=== PATIENT | male | born 1990 | race Caucasian/White ===

== ENCOUNTER 2021-10-16 07:41 | Emergency (ER) | payer OTHER | END 2021-10-16 09:37 | disposition home or self-care (01) | LOC: ER1 07:41 | DX: M79.641 Pain in right hand (principal); M79.642 Pain in left hand; M79.601 Pain in right arm; M79.602 Pain in left arm; G89.29 Other chronic pain; F17.200 Nicotine dependence, unspecified, uncomplicated; Z88.5 Allergy status to narcotic agent | CPT/HCPCS: 73130; 99283 ==